=== PATIENT | female | born 1960 ===

== ENCOUNTER 2017-08-14 20:02 | Emergency (ER) | payer SELFPAY ==
[2017-08-14 20:26] VITALS: BMI 56.9
[2017-08-14 20:38] VITALS: RESP 18; TEMP 98.3
--- NOTE | 2017-08-14 20:48 | ED PDOC ---
Arrival/HPI - General Historian: Patient, Family (daughters) - History of Present Illness Time/Duration: Other (3 days) Symptom Onset: Sudden Symptom Course: Other (acutely worsened 3 days prior and remains such) Quality: Cramping, Other (Pinching) Activities at Onset: Other (worse with weight bearing, worse when moving from sitting to standing) Context: Standing, Walking <Stanfrod Gerard - Last Filed: 08/14/17 22:15> <Mich Mitchell - Last Filed: 08/15/17 00:36> - General Chief Complaint: Lower Extremity Problem/Injury Time Seen by Provider: 08/14/17 20:03 - History of Present Illness Narrative History of Present Illness (Text): 08/14/17 20:44 This is a 57 yo F with PMH of arthritis, borderline DM on no medications, and morbid obesity who presents with worsening left knee pain x3 days. Reports that has chronic baseline pain, but while attempting to stand 3 days ago, developed worsening pain, which she describes as pinch in foot ascending to left knee; no further radiation to hip or back. As per daughters, still able to ambulate around house, but has some increased difficulty with ambulation, requires grabbing onto surfaces to pull herself to standing position. No loss of gait, loss of sensation, swelling of LLE, focal weakness, or left leg giving out under her weight. No falls or head trauma. No localized swelling, erythema , edema, no fevers/chills, no nausea/emesis, no dysuria/hematuria/frequency. Does not use any ambulatory assist devices. Flight of stairs to get into house , otherwise everything except laundry machine on 1 floor. Presented via cab, ambulated from cab into ED, and seen standing from wheelchair and getting into ED bed without issue or assistance needed. All other ROS in 12-system review negative. Of note: reports intermittent use of motrin with minimal relief. Was given prescription for meloxicam by PMD for use as needed but only trialed last night , and unsure if relief or not because she fell asleep shortly after. PMH: as above PSH: denies Fam Hx: non-contributory Soc Hx: denies tobacco, alcohol, illicits, lives in 1 floor house with stairs to enter but only stairs inside to get to laundry machine PMD: Dr. Garcia (Stanford Gerard) Past Medical History - Provider Review Nursing Documentation Reviewed: Yes - Psychiatric Hx Substance Use: No - Anesthesia Hx Anesthesia: No <Stanford Gerard - Last Filed: 08/14/17 22:15> Family/Social History - Physician Review Nursing Documentation Reviewed: Yes Family/Social History: Other (non-contributory) Smoking Status: Never Smoked Hx Alcohol Use: No Hx Substance Use: No <Stanford Gerard - Last Filed: 08/14/17 22:15> Allergies/Home Meds <Stanford Gerard - Last Filed: 08/14/17 22:15> <Mihc Mitchell - Last Filed: 08/15/17 00:36> Allergies/Adverse Reactions: Allergies No Known Allergies Allergy (Verified 08/14/17 20:29) Review of Systems - Physician Review All systems were reviewed & negative as marked: Yes (as per HPI) - Review of Systems Constitutional: Normal. absent: Fevers Eyes: Normal. absent: Vision Changes ENT: Normal. absent: Sore Throat, Rhinorrhea, Epistaxis, Sinus Congestion Respiratory: Normal. absent: SOB, Cough, Wheezing Cardiovascular: Normal. absent: Chest Pain, Calf Pain, WOOD, Syncope Gastrointestinal: Normal. absent: Abdominal Pain, Constipation, Diarrhea, Nausea, Vomiting Genitourinary Female: Normal. absent: Dysuria, Frequency Musculoskeletal: Other (left leg pain, predominantly in left foot radiating to left knee, baseline right knee pain). absent: Normal, Back Pain, Neck Pain Skin: absent: Rash, Pruritis Neurological: absent: Headache, Dizziness, Focal Weakness <Stanford Gerard - Last Filed: 08/14/17 22:15> Physical Exam Vital Signs Reviewed: Yes Temperature: Afebrile Blood Pressure: Normal Pulse: Regular Respiratory Rate: Normal Appearance: Positive for: Well-Appearing, Non-Toxic, Comfortable (ar rest, uncomfortable with manipulation of left leg) Pain Distress: Other (none at rest, mild-moderate with manipulation of left leg) Mental Status: Positive for: Alert and Oriented X 3 - Systems Exam Head: Present: Atraumatic, Normocephalic Pupils: No: Pinpoint Extroacular Muscles: Present: EOMI. No: Gaze Palsy, Entrapment Conjunctiva: Present: Normal. No: Injected, Icteric Mouth: Present: Moist Mucous Membranes, Normal Lips, Normal Tounge, Normal Teeth. No: Dry, Drooling Nose (External): Present: Atraumatic. No: Abrasion, Laceration Nose (Internal): Present: No Active Bleeding. No: Epistaxis Neck: Present: Normal Range of Motion, Trachea Midline. No: MIDLINE TENDERNESS , JVD Respiratory/Chest: Present: Clear to Auscultation, Good Air Exchange. No: Respiratory Distress, Accessory Muscle Use, Wheezes, Decreased Breath Sounds, Rales, Retracting, Rhonchi Cardiovascular: Present: Regular Rate and Rhythm, Normal S1, S2, Peripheal Pulses Present (+2 radials and +1 dorsalis pedis bilaterally). No: Murmurs, Irregular Rhythm, Tachycardic, Bradycardic Abdomen: Present: Normal Bowel Sounds. No: Tenderness, Distention, Guarding Upper Extremity: Present: Normal Inspection, Normal ROM, NORMAL PULSES. No: Cyanosis, Edema, Tenderness, Swelling, Erythema, Deformity Lower Extremity: Present: NORMAL PULSES, Tenderness (reports static tenderness at left foor and knee, mild plantar tenderness with palpation, mild patellar tendon tenderness with moderate palpation, pain with flexion of knee up > 30 degrees (pt guarding and preventing further movement), no left hip pain with movement or palpation), Other (no ligamentous laxity or tears appreciated on exam, normal varus/valgus stress testing, negative anterior and posterior drawer signs, negative Eduardo's). No: Edema, CALF TENDERNESS, Cyanosis, Normal ROM (self-limited due to pain, even with passive movement), Swelling, Erythema, Deformity Neurological: Present: GCS=15, Speech Normal, Motor Func Grossly Intact, Normal Sensory Function, Other (gait witnessed transitioning from wheelchair to bed, no obvious limp of deficit observed) Skin: Present: Warm, Dry, Normal Color. No: Rashes Lymphatic: No: Cervical Adenopathy Psychiatric: Present: Alert, Oriented x 3, Normal Insight, Normal Concentration , Normal Affect, Normal Mood <Stanford Gerard - Last Filed: 08/14/17 22:15> <Mich Mitchell - Last Filed: 08/15/17 00:36> Vital Signs Temp Pulse Resp BP Pulse Ox 08/14/17 22:45 75 18 125/84 100 08/14/17 20:32 98.3 F 78 18 122/73 99 Medical Decision Making Re-evaluation Time: 22:02 Reassessment Condition: Re-examined, Improved <Stanford Gerard - Last Filed: 08/14/17 22:15> <Mich Mitchell - Last Filed: 08/15/17 00:36> ED Course and Treatment: 08/14/17 21:15 Ddx: acute exacerbation of arthritis vs radiculopathy/radiculitis vs muscle strain/spasm Unlikely DVT, was and remains ambulatory, no calf tenderness specifically, and no asymmetric swelling in bilateral LE Toradol IM 30mg x1 for pain control X-ray bilateral hips/pelvis, bilateral knees, and L foot ordered f/u and dispo 08/14/17 22:15 Reports improvement in pain with Toradol IM X-rays obtained and reviewed, no acute fractures appreciated, but extensive knee arthritis L>R, suspicious for multiple L knee osteophytes Pt reports already has scheduled follow up with Ortho on August 31, encouraged to try to move up appointment, otherwise keep it Will give cane for ambulation support, instructed patient to use meloxicam as instructed Follow up with PMD in 1-2 weeks after discharge. Patient and daughters expressed agreement and understanding. Pt discharged to home Seen, reviewed, and discussed with attending, Dr. Mitchell (Stanford Gerard) 08/14/17 21:22 Julieta Rosario is a 57 year old female who presents to the emergency department for a complaint of left foot radiating up towards the left knee. In agreement with resident note which contains more detail about the patient. Patient was seen and evaluated with resident. Came up with plan and treatment together. (Mich Mitchell) - RAD Interpretation Radiology Orders: 08/14/17 20:40 KNEE W PATELLA BILAT 3 VIEW [RAD] Stat 08/14/17 20:46 FOOT LEFT 3 VIEWS ROUTINE [RAD] Stat 08/14/17 20:47 PELVIS W/OBLIQUES (3VWS) [RAD] Stat - Medication Orders Current Medication Orders: Discontinued Medications Ketorolac Tromethamine (Toradol) 30 mg IM STAT STA Stop: 08/14/17 20:51 Last Admin: 08/14/17 20:54 Dose: 30 mg MAR Pain Assessment Document 08/14/17 20:54 AD (Rec: 08/14/17 20:54 AD [id number]) Pain Reassessment Is this a pain reassessment? No Presence of Pain Presence of Pain Yes Pain Scale Used Pain Scale Used Numeric Description Intensity of Pain at present 8 IM Administration Charges Document 08/14/17 20:54 AD (Rec: 08/14/17 20:54 AD [id number]) Injection Site MAR Injection Site Left Deltoid Charges for Administration # of IM Administrations 1 <Stanford Gerard - Last Filed: 08/14/17 22:15> - PA / CLOTH PRINTER / Resident Statement MAILE has reviewed & agrees with the documentation as recorded. / has examined the patient and agrees with the treatment plan. - Scribe Statement The provider has reviewed the documentation as recorded by the Scribe <Mich Mitchell - Last Filed: 08/15/17 00:36> - Scribe Statement Moriah Sheriff Provider Scribe Attestation: All medical record entries made by the Scribe were at my direction and personally dictated by me. I have reviewed the chart and agree that the record accurately reflects my personal performance of the history, physical exam, medical decision making, and the department course for this patient. I have also personally directed, reviewed, and agree with the discharge instructions and disposition. (Mich Mitchell) Disposition/Present on Arrival - Present on Arrival Any Indicators Present on Arrival: No History of DVT/PE: No History of Uncontrolled Diabetes: No Urinary Catheter: No History of Decub. Ulcer: No History Surgical Site Infection Following: None - Disposition Have Diagnosis and Disposition been Completed?: Yes Disposition Time: 22:18 Patient Plan: Discharge <Stanford Gerard - Last Filed: 08/14/17 22:15> <Mich Mitchell - Last Filed: 08/15/17 00:36> - Disposition Diagnosis: Arthritis of left knee Disposition: HOME/ ROUTINE Condition: GOOD Discharge Instructions (ExitCare): Osteoarthritis (DC) Print Language: [place] CITIZEN Additional Instructions: JULIETA ROSARIO, thank you for letting us take care of you today. Your providers were Mich Mitchell MD and Stanford Gerard DO, and you were treated for LEG PROBLEM AND PAIN. The emergency medical care you received today was directed at your acute symptoms. If you were prescribed any medication, please fill it and take as directed. Please use the cane we have given you for gait support. It may take several days for your symptoms to resolve. Return to the Emergency Department if your symptoms worsen, do not improve, or if you have any other problems. Please follow up with Dr. Garcia within 1-2 weeks of discharge from the ED. Please maintain your appointment with Ortho you already have scheduled, and if you can, move the appointment up. Bring any paperwork you were given at discharge with you along with any medications you are taking to your follow up visit. Our treatment cannot replace ongoing medical care by a primary care provider outside of the emergency department. Thank you for allowing the [facility] team to be part of your care today. If you had an X-Ray or CT scan: A Radiologist will review the ED reading if any change in treatment is needed we will contact you. If you had a blood, urine, or wound culture: It will take several days for the results, if any change in treatment is needed we will contact you. If you had an STI test: It will take 48 hours for the results. Please call after 1 week if you have not heard back. Prescriptions: Meloxicam [Mobic] 7.5 mg PO DAILY #5 tab Referrals: Nichole Garcia MD [Primary Care Provider] - Follow up with primary Forms: [place] (Portuguese)
[2017-08-14 22:50] VITALS: BP 125/84; PULSE 75; O2SAT 100
--- NOTE | 2017-08-15 10:27 | RAD ---
PROCEDURE: Left Foot Radiographs. HISTORY: Left foot pain COMPARISON: None. FINDINGS: BONES: No evidence of acute displaced fracture nor dislocation. The osseous structures appear intact. Tiny plantar and posterior surface calcaneal enthesophytes. JOINTS: . Mild hallux valgus deformity with slight overgrowth of the head of the 1st metatarsal and minimal DJD 1st MTP joint. . There is also small osteophyte seen arising from the inferior tip medial malleolus. The the SOFT TISSUES: Normal. OTHER FINDINGS: None. IMPRESSION: No evidence of acute displaced fracture nor dislocation. If symptoms persist or occult fracture suspected clinically recommend repeat radiographs in 5-10 days as most fractures should become radiographically evident in this timeframe. S.
--- NOTE | 2017-08-15 17:05 | RAD ---
PROCEDURE: Radiographs of the pelvis. HISTORY: left knee and foot pain, left hip COMPARISON: None. FINDINGS: BONES: Pelvic Bones: Unremarkable. Hips: Grossly unremarkable. JOINTS: Sacroiliac Joints: Unremarkable. Pubic Symphysis: Unremarkable. OTHER FINDINGS: None. IMPRESSION: No evidence of acute displaced fracture nor dislocation. If symptoms persist or occult fracture suspected clinically recommend followup on CT scan of the pelvis
--- NOTE | 2017-08-15 17:07 | RAD ---
PROCEDURE: Bilateral Knee Radiographs. HISTORY: Left knee pain. History arthritis COMPARISON: No prior FINDINGS: BONES: No evidence of acute displaced fracture nor dislocation. The osseous structures appear intact. JOINTS: Bilateral tricompartmental degenerative osteoarthritis most notably affecting the medial compartments left greater than right. Marked medial joint space narrowing with subchondral sclerosis and marginal medial osteophyte formation. Smaller lateral marginal osteophytes are present. Posterior patella osteophyte formation also present. Tiny bilateral suprapatellar joint effusions. SOFT TISSUES: Right Knee: Normal. Left Knee: Normal. JOINT EFFUSION: As above OTHER FINDINGS: None. IMPRESSION: No evidence of acute displaced fracture nor dislocation. Tricompartmental degenerative osteoarthritis both knees left greater than right as described.
== END 2017-08-14 22:45 | disposition home or self-care (01) ==
LOC: ED 20:02
DX: M17.12 Unilateral primary osteoarthritis, left knee (principal)
CPT/HCPCS: 72190; 73562; 73630; 96372; 99283; J1885

== ENCOUNTER 2018-06-08 21:25 | Emergency (ER) | payer SELFPAY ==
[2018-06-08 21:43] VITALS: BMI 52.9
[2018-06-08 21:45] VITALS: TEMP 98; O2SAT 98
[2018-06-08] MEDS ORDERED: Sodium Chloride 0.9% 1,000 ML IV STA (22:35)
--- NOTE | 2018-06-08 23:02 | ED PDOC ---
Arrival/HPI - General Chief Complaint: Back Pain Time Seen by Provider: 06/08/18 21:27 Historian: Patient - History of Present Illness Narrative History of Present Illness (Text): 06/08/18 23:01 58-year-old female presents emergency room complaining of non-radiating right mid-low back pain, right flank pain which started yesterday, is a constant sharp pain worse with movement and with walking. Patient reports having kidney stones in the past which she passed without any issues. Otherwise she reports no fever, chills, trauma, injury, nausea, vomiting, fever, urinary symptoms, bowel or bladder incontinence, numbness, weakness. PMD Ahktar Past Medical History - Psychiatric Hx Substance Use: No - Surgical History Hx Cholecystectomy: Yes - Anesthesia Hx Anesthesia: No Family/Social History Family/Social History: No Known Family HX Smoking Status: Never Smoked Hx Alcohol Use: Yes Frequency of alcohol use: Socially Hx Substance Use: No Allergies/Home Meds Allergies/Adverse Reactions: Allergies No Known Allergies Allergy (Verified 06/08/18 21:43) Review of Systems - Review of Systems Constitutional: absent: Fatigue, Fevers Respiratory: absent: SOB, Cough Cardiovascular: absent: Chest Pain, Palpitations Gastrointestinal: absent: Abdominal Pain, Diarrhea, Vomiting Genitourinary Female: absent: Dysuria, Frequency, Hematuria Musculoskeletal: Arthralgias, Back Pain. absent: Neck Pain Skin: absent: Rash, Pruritis, Skin Lesions Neurological: absent: Headache, Dizziness Physical Exam Vital Signs Temp Pulse Resp BP Pulse Ox 06/08/18 21:43 98.0 F 78 18 112/80 98 Temperature: Afebrile Blood Pressure: Normal Pulse: Regular Respiratory Rate: Normal Appearance: Positive for: Well-Appearing, Non-Toxic, Comfortable Pain Distress: Mild Mental Status: Positive for: Alert and Oriented X 3 - Systems Exam Head: Present: Atraumatic, Normocephalic Pupils: Present: PERRL Extroacular Muscles: Present: EOMI Conjunctiva: Present: Normal Mouth: Present: Moist Mucous Membranes Neck: Present: Normal Range of Motion Respiratory/Chest: Present: Clear to Auscultation, Good Air Exchange. No: Respiratory Distress, Accessory Muscle Use Cardiovascular: Present: Regular Rate and Rhythm, Normal S1, S2. No: Murmurs Abdomen: No: Tenderness, Distention, Peritoneal Signs Back: Present: Normal Inspection, Other (+point tenderness to the R mid-low back). No: CVA Tenderness, Midline Tenderness Upper Extremity: Present: Normal Inspection, Normal ROM. No: Cyanosis, Edema Lower Extremity: Present: Normal Inspection, Normal ROM. No: Edema, Tenderness Neurological: Present: GCS=15, CN II-XII Intact, Speech Normal, Motor Func Grossly Intact, Normal Sensory Function Skin: Present: Warm, Dry, Normal Color. No: Rashes Psychiatric: Present: Alert, Oriented x 3, Normal Insight, Normal Concentration Medical Decision Making ED Course and Treatment: 06/08/18 22:58 Plan : - IV - Labs - UA, urine cx - IVF - Toradol - Reassess / disposition - CT A/P w/o contrast 06/09/18 01:00 CT A/P : 3 mm right renal nonobstructing stone. Labs reviewed and wnl. On reevaluation, patient reports improvement of symptoms. On exam, patient remains awake alert and oriented 3 in no acute distress, sitting comfortably. Results d/w the patient, diagnosis of renal colic d/w the patient. Advised to follow up with primary care physician and urology referral in 1-2 days without fail. Advised to take medication as prescribed. Return to the emergency room at any time for any new or worsening symptoms. Patient states she fully agrees with and understands discharge instructions. States that she agrees with the plan and disposition. Verbalized and repeated discharge instructions and plan. I have given the patient opportunity to ask any additional questions. - RAD Interpretation Narrative RAD Interpretations (Text): 06/09/18 00:03 CT SCAN OF THE ABDOMEN AND PELVIS WITHOUT ORAL OR IV CONTRAST. FINDINGS: Mild bilateral basilar subsegmental atelectatic pulmonary changes. Mild cardiomegaly. Enlarged fatty liver. Prior cholecystectomy. Uncomplicated colonic diverticulosis. 3 mm right renal nonobstructing stone. Mild constipation. Moderate diffuse spondylosis. Normal extrahepatic biliary system. Normal unenhanced spleen. Normal pancreas. Normal bilateral adrenal glands. Normal size of the right kidney. There is no right renal mass. There is no right hydronephrosis. Normal visualized right ureter. Normal size of the left kidney. There is no left renal mass. There are no left renal calculi. There is no left hydronephrosis. Normal visualized left ureter. Normal visualized stomach. Normal small intestine. The appendix is visualized and appears normal. There is no demonstrated peritoneal fluid. Normal abdominal aorta. Normal inferior vena cava. Normal retroperitoneum. Normal urinary bladder. There is no pelvic mass lesion or lymphadenopathy. There is no pelvic fluid. Normal abdominal wall. IMPRESSION: Mild bilateral basilar subsegmental atelectatic pulmonary changes. Mild cardiomegaly. Enlarged fatty liver. Prior cholecystectomy. Uncomplicated colonic diverticulosis. 3 mm right renal nonobstructing stone. Mild constipation. Moderate diffuse spondylosis. Radiology Orders: 06/08/18 22:34 ABD & PELVIS W/O PO OR IV CONT [CT] Stat Wet Suit Gluer: Radiologist - Medication Orders Current Medication Orders: Sodium Chloride (Sodium Chloride 0.9%) 1,000 mls @ 500 mls/hr IV .Q2H STA Stop: 06/09/18 00:34 Discontinued Medications Ketorolac Tromethamine (Toradol) 30 mg IVP STAT STA Stop: 06/08/18 22:36 - PA / APARTMENT LEASING MANAGER / Resident Statement MD/DO has reviewed & agrees with the documentation as recorded. Disposition/Present on Arrival - Present on Arrival Any Indicators Present on Arrival: No History of DVT/PE: No History of Uncontrolled Diabetes: No Urinary Catheter: No History of Decub. Ulcer: No History Surgical Site Infection Following: None - Disposition Have Diagnosis and Disposition been Completed?: Yes Diagnosis: Renal colic on right side Disposition: HOME/ ROUTINE Disposition Time: 01:00 Patient Plan: Discharge Patient Problems: Current Active Problems Problem Status Onset Renal colic on right side Acute Condition: STABLE Discharge Instructions (ExitCare): Renal Colic (DC) Print Language: SOUTH SUDANESE Additional Instructions: Thank you for letting us take care of you today. You were treated for right renal colic. The emergency medical care you received today was directed at your acute symptoms. If you were prescribed any medication, please fill it and take as directed. It may take several days for your symptoms to resolve. Return to the Emergency Department if your symptoms worsen, do not improve, or if you have any other problems. Please contact your doctor in 2 days for re-evaluation and follow up / or call one of the physicians/clinics you have been referred to that are listed on the Patient Visit Information form that is included in your discharge packet. Bring any paperwork you were given at discharge with you along with any medications you are taking to your follow up visit. Our treatment cannot replace ongoing medical care by a primary care provider (PCP) outside of the emergency department. Thank you for allowing the [facility] team to be part of your care today. If you had a urine culture: It will take several days for the results, if any change in treatment is needed we will contact you. Your CT abdomen/pelvis without contrast shows : IMPRESSION: Mild bilateral basilar subsegmental atelectatic pulmonary changes. Mild cardiomegaly. Enlarged fatty liver. Prior cholecystectomy. Uncomplicated colonic diverticulosis. 3 mm right renal nonobstructing stone. Mild constipation. Moderate diffuse spondylosis. Prescriptions: Meloxicam [Mobic] 15 mg PO DAILY PRN #20 tab PRN Reason: Pain, Moderate (4-7) Tamsulosin [Flomax] 0.4 mg PO DAILY #10 cap Referrals: Nichole Garcia MD [Primary Care Provider] - Follow up with primary Cole Sullivan MD [Staff Provider] - Follow up with primary Forms: Note (Argentine)
[2018-06-08 23:19] LABS: BASO # 0.02 K/mm3 (0.0-2.0); BASO % 0.2 % (0.0-3.0); EOS # 0.2 (0.0-0.7); EOS % 2.5 % (1.5-5.0); HEMOGLOBIN 11.7 g/dL (12.0-16.0); LYMPH # 3.1 (1.2-3.4); LYMPH % 35.3 % (22.0-35.0); MEAN CELL VOLUME 87.9 fl (80.0-105.0); MEAN CORPUSCULAR HEMOGLOBIN 27.3 pg (25.0-35.0); MEAN CORPUSCULAR HGB CONC 31.1 g/dl (31.0-37.0); MEAN PLATELET VOLUME 10.6 fl (7.0-11.0); MONO # 0.4 (0.1-0.6); MONO % 5.1 % (1.0-6.0); RBC 4.28 10^6/uL (3.5-6.1); RED CELL DISTRIBUTION WIDTH 14.1 % (11.5-14.5); WHITE BLOOD COUNT 8.7 10^3/uL (4.5-11.0)
[2018-06-08 23:24] LABS: URINE BILIRUBIN NEGATIVE (NEGATIVE); URINE BLOOD NEGATIVE (NEGATIVE); URINE GLUCOSE (UA) NEGATIVE (NEGATIVE); URINE LEUKOCYTE ESTERASE NEGATIVE Leu/uL (NEGATIVE); URINE PROTEIN TRACE mg/dL (<30 mg/dL); URINE UROBILINOGEN 0.2 E.U./dL (<1 E.U./dL)
[2018-06-08 23:25] LABS: URINE APPEARANCE CLEAR (CLEAR); URINE COLOR YELLOW (YELLOW)
[2018-06-08 23:29] LABS: ALB/GLOB RATIO 1.4 (1.1-1.8); ALBUMIN 4.1 g/dL (3.0-4.8); ALT/SGPT 32 U/L (7-56); AST/SGOT 30 U/L (14-36); BLOOD UREA NITROGEN 19 mg/dL (7-21); CALCIUM 9.2 mg/dL (8.4-10.5); GFR NON-AFRICAN AMERICAN > 60
[2018-06-08 23:53] LABS: URINE EPITHELIAL CELLS 0 - 2 /hpf (0-5); URINE RBC 0 - 2 /hpf (0-2); URINE WBC 0 - 2 /hpf (0-6)
[2018-06-08 23:54] LABS: URINE CALCIUM OXALATE CRYSTALS MOD /hpf
[2018-06-09 01:34] VITALS: BP 117/86; PULSE 82; RESP 16
--- NOTE | 2018-06-09 13:15 | CT ---
Date of service: 06/08/2018 PROCEDURE: CT Abdomen and Pelvis without intravenous contrast HISTORY: R flank pain COMPARISON: None. TECHNIQUE: Technique. Contrast dose: Radiation dose: Total exam DLP = 1649.72 mGy-cm. This CT exam was performed using one or more of the following dose reduction techniques: Automated exposure control, adjustment of the mA and/or kV according to patient size, and/or use of iterative reconstruction technique. FINDINGS: LOWER THORAX: Unremarkable. LIVER: Fatty liver. GALLBLADDER AND BILE DUCTS: Status post cholecystectomy. PANCREAS: Unremarkable. No gross lesion or ductal dilatation. SPLEEN: Unremarkable. ADRENALS: Unremarkable. No mass. KIDNEYS AND URETERS: Punctate left renal calculus. No hydronephrosis. No solid mass. VASCULATURE: Unremarkable. No aortic aneurysm. No aortic atherosclerotic calcification or mural plaque present. BOWEL: Unremarkable. No obstruction. No gross mural thickening. APPENDIX: Unremarkable. Normal appendix. PERITONEUM: Unremarkable. No free fluid. No free air. LYMPH NODES: Unremarkable. No enlarged lymph nodes. BLADDER: Unremarkable. REPRODUCTIVE: Unremarkable. BONES: No acute fracture. OTHER FINDINGS: None. IMPRESSION: Punctate left renal calculus. Fatty liver. Cholecystectomy.
== END 2018-06-09 01:30 | disposition home or self-care (01) ==
LOC: ED 21:25
DX: N20.0 Calculus of kidney (principal)
CPT/HCPCS: 74176; 80053; 81001; 85025; 87086; 96361; 96374; 99284; J1885; J7030

== ENCOUNTER 2018-06-27 19:21 | Emergency (ER) | payer SELFPAY ==
[2018-06-27 19:21] VITALS: BMI 52.9
[2018-06-27 19:37] VITALS: O2SAT 96
[2018-06-27] MEDS ORDERED: Sodium Chloride 0.9% 1,000 ML IV STA (20:13)
--- NOTE | 2018-06-27 20:26 | ED PDOC ---
Arrival/HPI - General Chief Complaint: Female Genitourinary Time Seen by Provider: 06/27/18 19:26 Historian: Patient - History of Present Illness Narrative History of Present Illness (Text): 06/27/18 20:24 A 58 year old female, whose past medical history includes kidney stones, presents to the emergency department complaining of right flank pain radiating to right-side abdomen. Patient reports she was seen in the ER 3 weeks prior, diagnosed with kidney stones at the time and discharged with pain medications. States felt better, however now having recurrent symptoms. Patient denies any fever, chills, nausea, vomiting, urinary symptoms, or any other complaints at this time. Past Medical History - Provider Review Nursing Documentation Reviewed: Yes Primary Care Provider: Nichole Garcia - Infectious Disease Hx of Infectious Diseases: None - Reproductive Menopause: Yes - Genitourinary/Gynecological Other/Comment: kidney stones - Psychiatric Hx Substance Use: No - Surgical History Hx Cholecystectomy: Yes - Anesthesia Hx Anesthesia: Yes Hx Anesthesia Reactions: No Hx Malignant Hyperthermia: No Family/Social History - Physician Review Nursing Documentation Reviewed: Yes Family/Social History: No Known Family HX Smoking Status: Never Smoked Hx Alcohol Use: Yes Hx Substance Use: No Allergies/Home Meds Allergies/Adverse Reactions: Allergies No Known Allergies Allergy (Verified 06/27/18 19:37) Review of Systems - Physician Review All systems were reviewed & negative as marked: Yes - Review of Systems Constitutional: absent: Fevers, Night Sweats Gastrointestinal: absent: Nausea, Vomiting Genitourinary Female: absent: Dysuria, Frequency, Hematuria, Urine Output Changes Musculoskeletal: Other (right flank pain radiating to right-side abdomen) Physical Exam Vital Signs Reviewed: Yes Vital Signs Temp Pulse Resp BP Pulse Ox 06/27/18 19:32 98.4 F 74 18 116/81 96 Temperature: Afebrile Blood Pressure: Normal Pulse: Regular Respiratory Rate: Normal Appearance: Positive for: Well-Appearing, Non-Toxic, Comfortable Pain Distress: None Mental Status: Positive for: Alert and Oriented X 3 - Systems Exam Head: Present: Atraumatic, Normocephalic Pupils: Present: PERRL Extroacular Muscles: Present: EOMI Conjunctiva: Present: Normal Mouth: Present: Moist Mucous Membranes Neck: Present: Normal Range of Motion Respiratory/Chest: Present: Clear to Auscultation, Good Air Exchange. No: Respiratory Distress, Accessory Muscle Use Cardiovascular: Present: Regular Rate and Rhythm, Normal S1, S2. No: Murmurs Abdomen: No: Tenderness, Distention, Peritoneal Signs Back: Present: Normal Inspection. No: CVA Tenderness Upper Extremity: Present: Normal Inspection. No: Cyanosis, Edema Lower Extremity: Present: Normal Inspection. No: Edema Neurological: Present: GCS=15, CN II-XII Intact, Speech Normal Skin: Present: Warm, Dry, Normal Color. No: Rashes Psychiatric: Present: Alert, Oriented x 3, Normal Insight, Normal Concentration Medical Decision Making ED Course and Treatment: 06/27/18 20:26 Impression: 58 year old female with right flank pain radiating to right-side abdomen. No acute findings on physical exam; no acute CVA tenderness. Plan: -- Labs -- Abd/Pelvis CT -- Urinalysis -- IV Fluids -- Toradol -- Reassess and disposition Progress Notes: 06/27/18 22:11 CT Abdomen and Pelvis: LUNG BASES: The lung bases appear clear. No pleural effusions are seen. LIVER: Hepatomegaly is noted. The liver measured 18.5 cm in the midclavicular line. GALLBLADDER AND BILE DUCTS: Status post cholecystectomy. No biliary ductal dilatation is evident. PANCREAS: Unremarkable. SPLEEN: Unremarkable. ADRENAL GLANDS: Unremarkable. KIDNEYS, URETERS, AND BLADDER: The kidneys appear within normal limits. There is no hydronephrosis or hydroureter. A punctate non-obstructing calculus is seen in the mid right renal pole. The urinary bladder appeared normal in size and configuration. STOMACH AND BOWEL: Unremarkable appearance of the stomach and bowel. No evidence of bowel obstruction. No evidence suggesting enteritis or colitis. APPENDIX: No evidence of acute appendicitis on CT examination. PERITONEUM: No free fluid. No free air. LYMPH NODES: No lymphadenopathy is evident. REPRODUCTIVE: Unremarkable as visualized. VASCULATURE: No evidence of abdominal aortic aneurysm. BONES: No aggressive appearing osseous lesion. No acute osseous pathology evident. There is multilevel degenerative disc disease noted at L2-3, L3-4, L4-5, L5-S1. IMPRESSION: 1. No acute intra-abdominal or pelvic abnormality. 2. Status post cholecystectomy. 3. Hepatomegaly. 4. A punctate non-obstructing calculus is seen in the mid right renal pole. 5. Multilevel degenerative disc disease noted. Electronically signed on June 27, 2018 10:09:37 PM EDT by: Jorge Alberto Irwin M.D., M.B.A., Certified By [employer] Trained MRI and CT Specialist - Lab Interpretations I have reviewed the lab results: Yes - RAD Interpretation Radiology Orders: 06/27/18 20:11 ABD & PELVIS W/O PO OR IV CONT [CT] Stat Software Project Lead: Radiologist - Medication Orders Current Medication Orders: Sodium Chloride (Sodium Chloride 0.9%) 1,000 mls @ 999 mls/hr IV .Q1H1M STA Stop: 06/27/18 21:13 Discontinued Medications Ketorolac Tromethamine (Toradol) 30 mg IVP ONCE ONE Stop: 06/27/18 20:14 - Scribe Statement The provider has reviewed the documentation as recorded by the John Killian Provider Scribe Attestation: All medical record entries made by the Scribe were at my direction and personally dictated by me. I have reviewed the chart and agree that the record accurately reflects my personal performance of the history, physical exam, medical decision making, and the department course for this patient. I have also personally directed, reviewed, and agree with the discharge instructions and disposition. Disposition/Present on Arrival - Present on Arrival Any Indicators Present on Arrival: No History of DVT/PE: No History of Uncontrolled Diabetes: No Urinary Catheter: No History of Decub. Ulcer: No History Surgical Site Infection Following: None - Disposition Have Diagnosis and Disposition been Completed?: Yes Diagnosis: Renal colic Disposition: HOME/ ROUTINE Disposition Time: 23:05 Patient Plan: Discharge Condition: GOOD Discharge Instructions (ExitCare): Renal Colic (DC) Additional Instructions: Drimk plenty of liquids/take meds as prescribed/follow up with the urologist this week Prescriptions: Naproxen [Naprosyn] 500 mg PO BID PRN #14 tab PRN Reason: Pain Referrals: Finesse Mcduffie MD [Staff Provider] - Follow up with primary Forms: [employer] ([place])
[2018-06-27 21:27] LABS: PH,URINE 6.5 (4.7-8.0); URINE BILIRUBIN NEGATIVE (NEGATIVE); URINE BLOOD NEGATIVE (NEGATIVE); URINE GLUCOSE (UA) NEGATIVE (NEGATIVE); URINE LEUKOCYTE ESTERASE NEGATIVE Leu/uL (NEGATIVE); URINE PROTEIN NEGATIVE mg/dL (<30 mg/dL)
[2018-06-27 21:28] LABS: HEMOGLOBIN 11.2 g/dL (12.0-16.0); MEAN CELL VOLUME 87.8 fl (80.0-105.0); MEAN CORPUSCULAR HEMOGLOBIN 26.8 pg (25.0-35.0); MEAN CORPUSCULAR HGB CONC 30.5 g/dl (31.0-37.0); MEAN PLATELET VOLUME 10.7 fl (7.0-11.0); RBC 4.18 10^6/uL (3.5-6.1); WHITE BLOOD COUNT 7.2 10^3/uL (4.5-11.0)
[2018-06-27 21:30] LABS: URINE APPEARANCE CLEAR (CLEAR); URINE COLOR YELLOW (YELLOW)
[2018-06-27 22:08] LABS: ALB/GLOB RATIO 1.3 (1.1-1.8); ALT/SGPT 27 U/L (7-56); AST/SGOT 35 U/L (14-36); BLOOD UREA NITROGEN 15 mg/dL (7-21); CALCIUM 8.9 mg/dL (8.4-10.5); GFR NON-AFRICAN AMERICAN > 60
[2018-06-27 23:29] VITALS: BP 103/72; PULSE 69; RESP 20; TEMP 97.1
--- NOTE | 2018-06-28 10:23 | CT ---
Date of service: 06/27/2018 PROCEDURE: CT Abdomen and Pelvis without intravenous contrast HISTORY: right flank pain COMPARISON: None. TECHNIQUE: Without contrast.. Contrast dose: Radiation dose: Total exam DLP = 1664.01 mGy-cm. This CT exam was performed using one or more of the following dose reduction techniques: Automated exposure control, adjustment of the mA and/or kV according to patient size, and/or use of iterative reconstruction technique. FINDINGS: LOWER THORAX: Unremarkable. LIVER: Unremarkable. No gross lesion or ductal dilatation. GALLBLADDER AND BILE DUCTS: Gallbladder removed PANCREAS: Unremarkable. No gross lesion or ductal dilatation. SPLEEN: Unremarkable. ADRENALS: Unremarkable. No mass. KIDNEYS AND URETERS: Unremarkable. No hydronephrosis. No solid mass. Nonobstructing 3 mm stone in the right kidney. VASCULATURE: Unremarkable. No aortic aneurysm. No aortic atherosclerotic calcification or mural plaque present. BOWEL: Unremarkable. No obstruction. No gross mural thickening. APPENDIX: Unremarkable. Normal appendix. PERITONEUM: Unremarkable. No free fluid. No free air. LYMPH NODES: Unremarkable. No enlarged lymph nodes. BLADDER: Unremarkable. REPRODUCTIVE: Unremarkable. BONES: Multilevel disc degeneration OTHER FINDINGS: The report concurs with the preliminary [facility] report IMPRESSION: No acute intra-abdominal findings
== END 2018-06-27 23:29 | disposition home or self-care (01) ==
LOC: ED 19:21
DX: N23 Unspecified renal colic (principal)
CPT/HCPCS: 74176; 80053; 81003; 85027; 96361; 96374; 99281; J1885; J7030